=== PATIENT | male | born 1980 | race Caucasian/White ===

== ENCOUNTER → 2022-06-09 | Outpatient (CLI) | payer BC ==
[~2022-06-09] MED LIST: CEPH500 PO; HYDACE5 PO; NAPR500 PO
[2022-06-09 11:55] LABS: BASOPHILS ABSOLUTE AUTO 0.04 K/mm3 (0.00-0.23); BASOPHILS PERCENT AUTO 1 % (0-2); EOSINOPHILS ABSOLUTE AUTO 0.18 K/mm3 (0.00-0.68); EOSINOPHILS PERCENT AUTO 2 % (0-6); Hematocrit 44.5 % (37.0-53.0); Hemoglobin 15.5 g/dL (13.5-17.5); IMMATURE GRAN ABSOLUTE AUTO 0.02 K/mm3 (0.00-0.10); IMMATURE GRAN PERCENT AUTO 0 % (0-1); LYMPHOCYTES ABSOLUTE AUTO 1.94 K/mm3 (0.84-5.20); LYMPHOCYTES PERCENT AUTO 25 % (21-46); MONOCYTES ABSOLUTE AUTO 0.57 K/mm3 (0.16-1.47); MONOCYTES PERCENT AUTO 8 % (4-13); Mean Corpuscular HGB 30.7 pg (26.0-34.0); Mean Corpuscular HGB Conc 34.8 g/dL (31.5-36.5); Mean Corpuscular Volume 88 fL (80-100); Mean Platelet Volume 8.8 fL (9.1-12.4); NEUTROPHILS ABSOLUTE AUTO 4.89 K/mm3 (1.96-9.15); NEUTROPHILS PERCENT AUTO 64 % (41-73); Platelet Count 312 K/mm3 (150-400); RDW Coefficient Variation 12.3 % (11.7-14.2); RDW Standard Deviation 39.6 fL (35.1-46.3); Red Blood Cell Count 5.05 M/mm3 (4.30-5.90); White Blood Cell Count 7.64 K/mm3 (4.00-11.30)
[2022-06-09 12:13] LABS: Albumin, Blood 3.8 g/dL (3.4-5.0); Albumin/Globulin Ratio 0.9 (0.8-1.8); Bilirubin, Total 0.3 mg/dL (0.1-1.0); Bun/Creatinine Ratio 12.2 (12.0-20.0); Calcium, Blood 9.4 mg/dL (8.5-10.1); Creatinine, Blood 1.15 mg/dL (0.60-1.20); Globulin, Blood 4.1 g/dL (2.2-4.0); Potassium, Blood 4.6 mmol/L (3.5-5.5); Total Protein, Blood 7.9 g/dL (6.4-8.2)
== END | disposition home or self-care (01) ==
LOC: LAB SHORT 11:51 → LAB 11:51
PROVIDERS: Physician Assistant
DX: R10.31 Right lower quadrant pain (principal)
CPT/HCPCS: 80053; 82150; 83690; 85025

== ENCOUNTER 2024-12-13 07:02 | Observation (INO) | payer BC ==
[~2024-12-13] VITALS: Ht 182.9 cm; Wt 97.5 kg
[2024-12-13] VITALS (14 sets, daily range): BP systolic 117–160; BP diastolic 72–98
[2024-12-13 07:36] LABS: BASOPHILS ABSOLUTE AUTO 0.04 K/mm3 (0.00-0.23); BASOPHILS PERCENT AUTO 0 % (0-2); EOSINOPHILS ABSOLUTE AUTO 0.12 K/mm3 (0.00-0.68); EOSINOPHILS PERCENT AUTO 1 % (0-6); Hematocrit 53.5 % (37.0-53.0); Hemoglobin 18.9 g/dL (13.5-17.5); IMMATURE GRAN ABSOLUTE AUTO 0.05 K/mm3 (0.00-0.10); IMMATURE GRAN PERCENT AUTO 0 % (0-1); LYMPHOCYTES ABSOLUTE AUTO 0.88 K/mm3 (0.84-5.20); LYMPHOCYTES PERCENT AUTO 6 % (21-46); MONOCYTES ABSOLUTE AUTO 0.95 K/mm3 (0.16-1.47); MONOCYTES PERCENT AUTO 7 % (4-13); Mean Corpuscular HGB Conc 35.3 g/dL (31.5-36.5); Mean Corpuscular Volume 89 fL (80-100); NEUTROPHILS ABSOLUTE AUTO 12.21 K/mm3 (1.96-9.15); NEUTROPHILS PERCENT AUTO 86 % (41-73); NRBC ABSOLUTE 0.00 K/mm3 (0.00-0.02); NRBC Auto 0.0 /100 WBC (0.0-0.2); Platelet Count 291 K/mm3 (150-400); RDW Coefficient Variation 12.1 % (11.7-14.2); RDW Standard Deviation 39.7 fL (35.1-46.3)
[2024-12-13] MEDS ORDERED: Ondansetron HCl 2 MG / ML 2ML Vial IV ONE (07:50)
[2024-12-13] MEDS ORDERED: Morphine Sulfate 4 MG/1 ML Injection IV ONE ×2 (07:50→09:05)
[2024-12-13 07:53] LABS: Alanine Aminotransfer (ALT/SGP 53.0 U/L (12-78); Albumin, Blood 4.1 g/dL (3.4-5.0); Albumin/Globulin Ratio 1.1 (0.8-1.8); Anion Gap 10.0 mmol/L (3-11); Aspartate Aminotrans (AST/SGOT 32.0 U/L (12-37); Bilirubin, Total 1.0 mg/dL (0.1-1.0); Blood Urea Nitrogen 16.0 mg/dL (8-24); CO2, Blood 24.0 mmol/L (21-32); Calcium, Blood 9.6 mg/dL (8.5-10.1); Chloride, Blood 105.0 mmol/L (98-108); Creatinine, Blood 1.33 mg/dL (0.60-1.20); Globulin, Blood 3.9 g/dL (2.2-4.0); Glucose, Blood 95.0 mg/dL (70-99); Potassium, Blood 4.4 mmol/L (3.5-5.5); Sodium, Blood 135.0 mmol/L (136-145); Total Protein, Blood 8.0 g/dL (6.4-8.2)
[2024-12-13] MEDS ORDERED: NS 1,000 ML IV SCH (08:50)
[2024-12-13] MEDS ORDERED: Ampicillin Sod/Sulbactam Sod 3 GM in NS 100 ML IV ONE (08:55)
[2024-12-13] MEDS ORDERED: HYDROmorphone HCl/Pf 1MG SYR IV ONE (09:00)
[2024-12-13] MEDS ORDERED: TRAZ50 PO (09:26)
[2024-12-13] MEDS ORDERED: BUPROPION XL150 MG PO (09:26)
[2024-12-13] MEDS ORDERED: FentaNYL Citrate 50 MCG/ML 2 ML Injection ONE ×2 (09:40→10:17)
[2024-12-13] MEDS ORDERED: FentaNYL Citrate 50 MCG/ML 2 ML Injection IV ONE (09:45)
[2024-12-13] MEDS ORDERED: Bupivacaine 0.5% HCl 5 MG/ML 30MLVIAL ONE (09:45)
[2024-12-13] MEDS ORDERED: Midazolam HCl 1MG / ML 2ML Vial IV SCH (09:45)
[2024-12-13] MEDS ORDERED: FLU VACC TS2025-26(6MOS UP)/PF 45 MCG/0.5 ML SYRINGE IM SCH (10:05)
[2024-12-13] MEDS ORDERED: FentaNYL Citrate 50 MCG/ML 2 ML Injection IV PRN ×3 (10:10→10:30)
[2024-12-13] MEDS ORDERED: Ondansetron HCl 2 MG / ML 2ML Vial IV PRN ×2 (10:10→10:35)
[2024-12-13] MEDS ORDERED: Midazolam HCl 1MG / ML 2ML Vial ONE (10:17)
[2024-12-13] MEDS ORDERED: Metoclopramide HCl 5MG / ML 2ML Vial ONE (10:23)
[2024-12-13] MEDS ORDERED: Dexamethasone Sod Phos 10 MG/ML 1ML VIAL ONE (10:23)
[2024-12-13] MEDS ORDERED: Ondansetron HCl 2 MG / ML 2ML Vial ONE (10:23)
[2024-12-13] MEDS ORDERED: Ketorolac Tromethamine 15mg Vial IV PRN (10:25)
[2024-12-13] MEDS ORDERED: Albuterol 2.5 MG/3 ML VIAL INH PRN (10:30)
[2024-12-13] MEDS ORDERED: HYDROmorphone HCl/Pf 1MG SYR IV PRN ×2 (10:35)
[2024-12-13] MEDS ORDERED: Sugammadex Sodium 200 MG/2ML SDV (100 MG/ML) ONE (11:22)
[2024-12-13] MEDS ORDERED: Ketorolac Tromethamine 30mg Vial ONE (11:22)
[2024-12-13] MEDS ORDERED: Phenylephrine HCl 100 MCG/ML-NS 10MLSYR (1MG/10ML) IV ONE (11:38)
[2024-12-13] MEDS ORDERED: Rocuronium Bromide 10 MG/ML 5ML Injection IV ONE (11:38)
[2024-12-13] MEDS ORDERED: OXAYDO5 M1 PO (12:36)
--- NOTE | 2024-12-13 14:22 | NUR ---
POST-OP PATIENT POST OP FOR LAP APPY. X3 LAP SITES ARE SHAHANA, C/D/I. DENIES PAIN. DENIES NAUSEA. ABLE TO TOLERATE REG DIET. VSS, ON RA AT THIS TIME. [id number]%. PATIENT IS CURRENTLY SLEEPING, SPOUSE IS IN ROOM. DC ORDER IN PLACE AWAITING PATIENT TO VOID.
--- NOTE | 2024-12-13 15:41 | NUR ---
DISCHARGE PATIENT TOLERATING PO INTAKE. DENIES N/V, PAIN. PRESCRIPTIONS SENT TO [facility]. UP VOIDING VSS. ALL DC INSTRUCTIONS READ AND SIGNED IV TAKEN OUT INTACT, PATIENT WALKS OUT ON OWN WITH SPOUSE.
[2024-12-14] MEDS ORDERED: Enoxaparin 40 MG/0.4 ML SYR SC SCH (09:00)
== END 2024-12-13 14:59 | disposition home or self-care (01) ==
LOC: ER 07:02 → SURS 07:03
PROVIDERS: Emergency Medicine; ADMIT Surgery
PROC: 0DTJ4ZZ Resection of Appendix, Percutaneous Endoscopic Approach (ICD-10-PCS; principal; 2024-12-13 10:00)
DX: K35.33 Acute appendicitis with perforation, localized peritonitis, and gangrene, with abscess (principal); F17.290 Nicotine dependence, other tobacco product, uncomplicated
CPT/HCPCS: 74177; 80053; 83690; 85025; 88304; 94762; 96374; 96375; 96376; 99285-25; J0295; J1100; J1171; J1885; J2250; J2270; J2371; J2405; J2704; J2765; J3010; J7030; J7120; Q9967

== ENCOUNTER 2024-12-17 13:27 | Inpatient (IN) | payer BC ==
[~2024-12-17] VITALS: Ht 182.9 cm; Wt 97.4 kg
[~2024-12-17 13:27] MED LIST changes: +BUPROPION XL150 MG PO; +OXAYDO5 M1 PO; +TRAZ50 PO
[2024-12-17] MEDS ORDERED: Ondansetron HCl 2 MG / ML 2ML Vial IV ONE (14:10)
[2024-12-17 14:25] LABS: BASOPHILS ABSOLUTE AUTO 0.04 K/mm3 (0.00-0.23); BASOPHILS PERCENT AUTO 0 % (0-2); EOSINOPHILS ABSOLUTE AUTO 0.19 K/mm3 (0.00-0.68); EOSINOPHILS PERCENT AUTO 2 % (0-6); Hematocrit 53.9 % (37.0-53.0); Hemoglobin 19.0 g/dL (13.5-17.5); IMMATURE GRAN ABSOLUTE AUTO 0.05 K/mm3 (0.00-0.10); IMMATURE GRAN PERCENT AUTO 0 % (0-1); LYMPHOCYTES ABSOLUTE AUTO 0.93 K/mm3 (0.84-5.20); LYMPHOCYTES PERCENT AUTO 8 % (21-46); MONOCYTES ABSOLUTE AUTO 0.99 K/mm3 (0.16-1.47); MONOCYTES PERCENT AUTO 9 % (4-13); Mean Corpuscular HGB Conc 35.3 g/dL (31.5-36.5); Mean Corpuscular Volume 90 fL (80-100); NEUTROPHILS ABSOLUTE AUTO 9.50 K/mm3 (1.96-9.15); NEUTROPHILS PERCENT AUTO 81 % (41-73); NRBC ABSOLUTE 0.00 K/mm3 (0.00-0.02); NRBC Auto 0.0 /100 WBC (0.0-0.2); Platelet Count 434 K/mm3 (150-400); RDW Coefficient Variation 12.0 % (11.7-14.2); RDW Standard Deviation 39.6 fL (35.1-46.3)
[2024-12-17 14:31] LABS: Alanine Aminotransfer (ALT/SGP 34.0 U/L (12-78); Albumin, Blood 3.1 g/dL (3.4-5.0); Albumin/Globulin Ratio 0.6 (0.8-1.8); Anion Gap 8.0 mmol/L (3-11); Aspartate Aminotrans (AST/SGOT 24.0 U/L (12-37); Bilirubin, Total 0.7 mg/dL (0.1-1.0); Blood Urea Nitrogen 12.0 mg/dL (8-24); CO2, Blood 33.0 mmol/L (21-32); Calcium, Blood 10.4 mg/dL (8.5-10.1); Chloride, Blood 95.0 mmol/L (98-108); Creatinine, Blood 1.35 mg/dL (0.60-1.20); Globulin, Blood 5.5 g/dL (2.2-4.0); Glucose, Blood 101.0 mg/dL (70-99); Potassium, Blood 4.1 mmol/L (3.5-5.5); Sodium, Blood 132.0 mmol/L (136-145); Total Protein, Blood 8.6 g/dL (6.4-8.2)
[2024-12-17] MEDS ORDERED: Morphine Sulfate 4 MG/1 ML Injection IV ONE (15:00)
[2024-12-17] MEDS ORDERED: Metoclopramide HCl 5MG / ML 2ML Vial IV ONE (15:00)
[2024-12-17] MEDS ORDERED: HYDROmorphone HCl/Pf 1MG SYR IV ONE (15:35)
[2024-12-17] MEDS ORDERED: Metoclopramide HCl 5MG / ML 2ML Vial IV PRN (15:40)
[2024-12-17] MEDS ORDERED: HYDROmorphone HCl/Pf 1MG SYR IV PRN (15:40)
[2024-12-17] MEDS ORDERED: Ondansetron HCl 2 MG / ML 2ML Vial IV PRN (15:40)
[2024-12-17] MEDS ORDERED: FLU VACC TS2025-26(6MOS UP)/PF 45 MCG/0.5 ML SYRINGE IM SCH (15:40)
[2024-12-17] MEDS ORDERED: Ketorolac Tromethamine 15mg Vial IV PRN (15:50)
[2024-12-17] MEDS ORDERED: Piperacillin/Tazobactam Sod 3.375 GM in NS 100 ML IV SCH (16:00)
[2024-12-17] MEDS ORDERED: DEXTROMETHORPHAN/BENZOCAINE 1 EACH LOZENGE MT PRN (16:05)
[2024-12-17 17:24] VITALS: BP 143/90
[2024-12-17] MEDS ORDERED: BUPR150ER PO (17:26)
[2024-12-17] MEDS ORDERED: DEPO-TESTO200 MG/1 M IM (17:28)
--- NOTE | 2024-12-17 18:15 | NUR ---
NGT: NGT INSERTED AT THIS TIME. PT TOLERATED WELL. GASTRIC CONTENTS VISIBLE IN TUBING. XR COMPLETED TO CONFIRM PLACEMENT. TUBE SECURED.
--- NOTE | 2024-12-17 19:56 | NUR ---
CALL FROM HOSPITALIST REGARDING XRAY READ. PER PROVIDER, NGT OK TO USE
[2024-12-17 20:01] VITALS: BP 146/96
[2024-12-17] MEDS ORDERED: NS 250 ML IV PRN (23:55)
[2024-12-18 03:05] VITALS: BP 146/88
[2024-12-18 04:00] LABS: BASOPHILS ABSOLUTE AUTO 0.02 K/mm3 (0.00-0.23); BASOPHILS PERCENT AUTO 0 % (0-2); EOSINOPHILS ABSOLUTE AUTO 0.27 K/mm3 (0.00-0.68); EOSINOPHILS PERCENT AUTO 3 % (0-6); Hematocrit 46.1 % (37.0-53.0); Hemoglobin 15.8 g/dL (13.5-17.5); IMMATURE GRAN ABSOLUTE AUTO 0.03 K/mm3 (0.00-0.10); IMMATURE GRAN PERCENT AUTO 0 % (0-1); LYMPHOCYTES ABSOLUTE AUTO 1.02 K/mm3 (0.84-5.20); LYMPHOCYTES PERCENT AUTO 12 % (21-46); MONOCYTES ABSOLUTE AUTO 0.93 K/mm3 (0.16-1.47); MONOCYTES PERCENT AUTO 11 % (4-13); Mean Corpuscular HGB Conc 34.3 g/dL (31.5-36.5); Mean Corpuscular Volume 91 fL (80-100); NEUTROPHILS ABSOLUTE AUTO 6.32 K/mm3 (1.96-9.15); NEUTROPHILS PERCENT AUTO 74 % (41-73); NRBC ABSOLUTE 0.00 K/mm3 (0.00-0.02); NRBC Auto 0.0 /100 WBC (0.0-0.2); Platelet Count 328 K/mm3 (150-400); RDW Coefficient Variation 12.2 % (11.7-14.2); RDW Standard Deviation 40.5 fL (35.1-46.3)
[2024-12-18 04:25] LABS: Anion Gap 9.0 mmol/L (3-11); Blood Urea Nitrogen 13.0 mg/dL (8-24); CO2, Blood 30.0 mmol/L (21-32); Calcium, Blood 9.4 mg/dL (8.5-10.1); Chloride, Blood 99.0 mmol/L (98-108); Creatinine, Blood 1.27 mg/dL (0.60-1.20); Glucose, Blood 95.0 mg/dL (70-99); Potassium, Blood 4.0 mmol/L (3.5-5.5); Sodium, Blood 134.0 mmol/L (136-145)
--- NOTE | 2024-12-18 05:27 | NUR ---
SHIFT SUMMARY NO ACUTE EVENTS OVERNIGHT. PT NGT WITH OUTPUT THROUGHOUT SHIFT. PT MEDICATED FOR PAIN DURING SHIFT PER APR. PT DID REQUEST THROAT LOZENGES AND AFTER ADMINISTRATION, SMALL RED-TINGED OUTPUT IN NGT. PT ABDOMINAL DISTENTION LESSENED.
[2024-12-18 07:27] VITALS: BP 142/85
[2024-12-18] MEDS ORDERED: Enoxaparin 40 MG/0.4 ML SYR SC SCH (09:00)
[2024-12-18] MEDS ORDERED: CLOMIPHENE CITRATE PO (10:57)
[2024-12-18 15:05] VITALS: BP 139/90
[2024-12-18 15:06] VITALS: BP 139/90
--- NOTE | 2024-12-18 18:23 | NUR ---
NGT DC'D SMALL AMOUNTS OF CLEAR LIQUIDS GIVEN, EDUCATED TO TAKE IN SLOWLY. PT PLANS TO AMBULATE IN THE HALWAY NOW THAT NGT IS REMOVED. TOLERATED WELL.
--- NOTE | 2024-12-18 19:30 | NUR ---
SHIFT SUMMARY PT HAS DONE WELL TODAY. UP IND IN ROOM & AMBULATED IN HALLWAY AFTER NGT REMOVED. SO FAR HAS DONE WELL SIPPING ON CL's.
[2024-12-18 19:35] VITALS: BP 146/89
[2024-12-19 03:46] VITALS: BP 140/96
[2024-12-19 07:22] VITALS: BP 150/96
--- NOTE | 2024-12-19 07:29 | NUR ---
SHIFT SUMMARY NOC. PT ADMIT FOR POST OP ILEUS. LAP SITES FROM PREV APPY C/D/I. PT VOIDING, TOLERATING CLD. NO EMESIS OR NAUSEA THIS SHIFT. MEDICATED PER EMAR FOR PAIN WITH REPORTED RELIEF. MAKES NEEDS KNOWN.
--- NOTE | 2024-12-19 15:15 | NUR ---
DISCHARGE TOLERATING FULL LQs WELL & PAIN IS SIGNIFICANTLY BETTER. HAVING SMALL BMs & VOIDING WELL. DECLINES WC & ESCORTED OUT w/ DAD.
== END 2024-12-19 15:21 | disposition home or self-care (01) | DRG 388 ==
LOC: ER 13:27 → SURS 15:37
PROVIDERS: Student in an Organized Health Care Education/Training Program; ADMIT Surgery
PROC: 0D9670Z Drainage of Stomach with Drainage Device, Via Natural or Artificial Opening (ICD-10-PCS; principal; 2024-12-17)
PROC: 3E03329 Introduction of Other Anti-infective into Peripheral Vein, Percutaneous Approach (ICD-10-PCS; 2024-12-17)
DX: K56.7 Ileus, unspecified (principal); K65.1 Peritoneal abscess; E87.1 Hypo-osmolality and hyponatremia; D75.839 Thrombocytosis, unspecified; Z90.49 Acquired absence of other specified parts of digestive tract
CPT/HCPCS: 36415; 71045; 74177; 80048; 80053; 83690; 85025; 96374-59; 96375; 99284-25; A9270; J1171; J1650; J1885; J2270; J2405; J2543; J2765; J7050; J7120; Q9967